=== PATIENT | male | born 1970 | race Caucasian/White ===

== ENCOUNTER 2017-03-06 15:31 | Emergency (ER) | payer MEDICARE ==
[~2017-03-06] VITALS: Ht 188 cm; Wt 90.0 kg
[~2017-03-06 15:31] MED LIST: ADLT ASA LOW81 MG PO; ASPIRIN325 MG PO; CARVEDILOL12.5 MG PO; CARVEDILOL6.25 MG PO; FUROSEMIDE40 MG PO; LASIX 20 MG TAB20 MG PO; LISINOPRIL20 MG PO; MAXZIDE-2537.5 MG/TA PO; PLAVIX75 MG PO; PROTONIX40 M2 PO; SIMVASTATIN40 MG PO; SPIRONOLACTONE25 MG PO
[2017-03-06 16:26] LABS: HEMATOCRIT 34.8 % (39.0-50.0); HEMOGLOBIN 11.5 g/dl (14.0-18.0); IMMATURE GRANULOCYTES 0.4 % (0.0-1.0); MEAN CELL VOLUME 87.4 fL CALC (80.0-100.0); MEAN CORPUSCULAR HGB 28.9 pG CALC (26.0-32.0); NEUT# 8.75 thou/uL (1.82-7.42); RED BLOOD COUNT 3.98 mill/uL (4.70-6.10); RED CELL DISTRI WIDTH 13.8 % (11.5-15.5)
[2017-03-06 16:46] LABS: BILIRUBIN, TOTAL 1.5 mg/dL (0.0-1.4); CREATININE 1.7 mg/dL (0.7-1.3); POTASSIUM 4.2 mmol/l (3.5-5.1); TOTAL PROTEIN 6.7 g/dL (6.3-8.2)
[2017-03-06 17:46] LABS: URINE BLOOD DIPSTICK SMALL (NEGATIVE); URINE COLOR YELLOW; URINE GLUCOSE - DIPSTICK NEGATIVE (NEGATIVE); URINE KETONE NEGATIVE (NEGATIVE); URINE LEUK ESTERASE NEGATIVE (NEGATIVE); URINE NITRITE - DIPSTICK NEGATIVE (Negative); URINE PROTEIN - DIPSTICK 100 mg/dL (NEG-TRACE); URINE SPECIFIC GRAVITY >=1.030
[2017-03-06 17:47] LABS: URINE AMORPH SEDIMENT MANY hpf (NONE-FER); URINE BILIRUBIN - DIPSTICK NEGATIVE (NEGATIVE); URINE CLARITY HAZY; URINE RBC 0-2 RBC/hpf (0-5); URINE WBC 0-2 WBC/hpf (0-5)
[2017-03-06] MEDS ORDERED: FLEXERIL5 MG PO (17:58)
[2017-03-06] MEDS ORDERED: VOLTAREN1%GEL TOP (17:58)
[2017-03-06 18:12] VITALS: BP 155/100
== END 2017-03-06 18:12 | disposition home or self-care (01) ==
LOC: ED 15:31
PROVIDERS: Family Medicine
DX: M54.9 Dorsalgia, unspecified (principal); I11.0 Hypertensive heart disease with heart failure; I50.9 Heart failure, unspecified; I25.10 Atherosclerotic heart disease of native coronary artery without angina pectoris; E78.5 Hyperlipidemia, unspecified

== ENCOUNTER 2017-03-08 08:17 | Inpatient (IN) | payer MEDICARE ==
[~2017-03-08] VITALS: Ht 188 cm; Wt 92.9 kg
[~2017-03-08 08:17] MED LIST changes: +FLEXERIL5 MG PO; +VOLTAREN1%GEL TOP
[2017-03-08 09:46] LABS: HEMATOCRIT 36.1 % (39.0-50.0); HEMOGLOBIN 11.7 g/dl (14.0-18.0); IMMATURE GRANULOCYTES 0.4 % (0.0-1.0); MEAN CELL VOLUME 88.5 fL CALC (80.0-100.0); MEAN CORPUSCULAR HGB 28.7 pG CALC (26.0-32.0); MEAN CORPUSCULAR HGB CONC 32.4 g/L CALC (32.0-36.0); NEUT# 10.98 thou/uL (1.82-7.42); RED BLOOD COUNT 4.08 mill/uL (4.70-6.10); RED CELL DISTRI WIDTH 14.5 % (11.5-15.5)
[2017-03-08 09:54] LABS: BARBITURATES NEGATIVE (NEGATIVE); COCAINE NEGATIVE (NEGATIVE); METHADONE NEGATIVE (NEGATIVE); OXCYCODONE NEGATIVE (NEGATIVE); TETRAHYDROCANNABIONOL NEGATIVE (NEGATIVE); TRICYLIC ANTIDEPRESSANTS NEGATIVE (NEGATIVE)
[2017-03-08 09:58] LABS: ALBUMIN 4.1 g/dL (3.2-5.0); BILIRUBIN, TOTAL 1.6 mg/dL (0.0-1.4); CALCIUM 9.1 mg/dL (8.4-10.2); CREATININE 1.8 mg/dL (0.7-1.3); POTASSIUM 4.5 mmol/l (3.5-5.1); TOTAL PROTEIN 7.2 g/dL (6.3-8.2)
[2017-03-08 10:06] LABS: URINE BILIRUBIN - DIPSTICK NEGATIVE (NEGATIVE); URINE BLOOD DIPSTICK SMALL (NEGATIVE); URINE CLARITY HAZY; URINE COLOR YELLOW; URINE GLUCOSE - DIPSTICK NEGATIVE (NEGATIVE); URINE KETONE NEGATIVE (NEGATIVE); URINE LEUK ESTERASE NEGATIVE (NEGATIVE); URINE NITRITE - DIPSTICK NEGATIVE (Negative); URINE PROTEIN - DIPSTICK 100 mg/dL (NEG-TRACE); URINE SPECIFIC GRAVITY >=1.030
[2017-03-08 10:14] LABS: URINE AMORPH SEDIMENT MANY hpf (NONE-FER); URINE RBC 0-2 RBC/hpf (0-5); URINE WBC 0-2 WBC/hpf (0-5)
[2017-03-08 12:39] VITALS: BP 121/88
[2017-03-08 16:20] VITALS: BP 140/102
[2017-03-08 19:00] VITALS: BP 135/100
[2017-03-08 20:46] VITALS: BP 134/96
[2017-03-09] VITALS: BP 115/87
== END 2017-03-09 02:35 | disposition short-term general hospital (02) | DRG 194 ==
LOC: ED 08:17 → ED-I 10:31 → ED 10:49 → MS2 10:50
PROVIDERS: Emergency Medicine; ADMIT Internal Medicine; ATTEND Internal Medicine
DX: J18.9 Pneumonia, unspecified organism (principal); I13.0 Hypertensive heart and chronic kidney disease with heart failure and stage 1 through stage 4 chronic kidney disease, or unspecified chronic kidney disease; I50.9 Heart failure, unspecified; R74.8 Abnormal levels of other serum enzymes; Z86.74 Personal history of sudden cardiac arrest; I25.10 Atherosclerotic heart disease of native coronary artery without angina pectoris; N18.3 Chronic kidney disease, stage 3 (moderate); E78.5 Hyperlipidemia, unspecified; Z95.5 Presence of coronary angioplasty implant and graft; Z87.891 Personal history of nicotine dependence; Z91.14 Patient's other noncompliance with medication regimen
CPT/HCPCS: J1650

== ENCOUNTER 2017-03-18 06:35 | Inpatient (IN) | payer MEDICARE ==
[~2017-03-18] VITALS: Ht 188 cm; Wt 99.9 kg
[2017-03-18 07:34] LABS: HEMATOCRIT 36.7 % (39.0-50.0); IMMATURE GRANULOCYTES 0.5 % (0.0-1.0); MEAN CELL VOLUME 87.4 fL CALC (80.0-100.0); MEAN CORPUSCULAR HGB 28.6 pG CALC (26.0-32.0); MEAN CORPUSCULAR HGB CONC 32.7 g/L CALC (32.0-36.0); NEUT# 7.56 thou/uL (1.82-7.42); RED BLOOD COUNT 4.2 mill/uL (4.70-6.10); RED CELL DISTRI WIDTH 16.8 % (11.5-15.5)
[2017-03-18 07:51] LABS: ALBUMIN 3.7 g/dL (3.2-5.0); ALKALINE PHOSPHATASE 94 u/l (38-126); BILIRUBIN, TOTAL 1.5 mg/dL (0.0-1.4); BUN 23 mg/dL (9-20); BUN/CREATININE RATIO 15 (12-20 (CALC)); CALCIUM 9.1 mg/dL (8.4-10.2); CARBON DIOXIDE 20 mmol/l (22-30); CHLORIDE 103 mmol/l (95-108); CREATININE 1.5 mg/dL (0.7-1.3); GFR 50 ML/MIN (>=60 (CALC)); GFR FOR AFR.AMER. > 60 ML/MIN (>=60 (CALC)); GLUCOSE 112 mg/dL (75-110); SGOT/AST 61 u/l (17-59); SGPT/ALT 374 u/l (21-72); SODIUM 137 mmol/l (137-146); TOTAL PROTEIN 6.8 g/dL (6.3-8.2)
[2017-03-18 08:00] LABS: ANION GAP 19 (6-22 (CALC)); POTASSIUM 5.1 mmol/l (3.5-5.1)
[2017-03-18] MEDS ORDERED: CARVEDILOL6.25 MG PO (19:30)
[2017-03-18] MEDS ORDERED: CLONIDINE0.1 MG PO (19:31)
[2017-03-18] MEDS ORDERED: Levaquin PO (19:32)
[2017-03-18] MEDS ORDERED: SPIRONOLACTONE25 MG PO (19:32)
[2017-03-18] MEDS ORDERED: LISINOPRIL20 MG PO (19:33)
[2017-03-18 21:45] VITALS: BP 154/98
[2017-03-18 22:00] VITALS: BP 155/109
[2017-03-18 22:15] VITALS: BP 153/113
[2017-03-18 22:30] VITALS: BP 142/104
[2017-03-18 22:45] VITALS: BP 143/104
[2017-03-18 23:00] VITALS: BP 161/106
[2017-03-19 00:01] VITALS: BP 124/87
[2017-03-19 01:00] VITALS: BP 131/89
[2017-03-19 02:00] VITALS: BP 129/86
== END 2017-03-19 03:20 | disposition short-term general hospital (02) | DRG 291 ==
LOC: ED 06:35 → ED-I 19:53 → ED 20:08 → ICU 20:09
PROVIDERS: Emergency Medicine; ADMIT Internal Medicine; ATTEND Internal Medicine
DX: I13.0 Hypertensive heart and chronic kidney disease with heart failure and stage 1 through stage 4 chronic kidney disease, or unspecified chronic kidney disease (principal); I50.23 Acute on chronic systolic (congestive) heart failure; Z86.74 Personal history of sudden cardiac arrest; N18.3 Chronic kidney disease, stage 3 (moderate); I25.5 Ischemic cardiomyopathy; I25.10 Atherosclerotic heart disease of native coronary artery without angina pectoris; E78.5 Hyperlipidemia, unspecified; F17.210 Nicotine dependence, cigarettes, uncomplicated; I25.2 Old myocardial infarction; K82.9 Disease of gallbladder, unspecified; Z91.19 Patient's noncompliance with other medical treatment and regimen; Z91.14 Patient's other noncompliance with medication regimen; Z86.73 Personal history of transient ischemic attack (TIA), and cerebral infarction without residual deficits; Z95.5 Presence of coronary angioplasty implant and graft
CPT/HCPCS: J1650

== ENCOUNTER 2017-03-27 13:59 | Emergency (ER) | payer MEDICARE ==
[~2017-03-27] VITALS: Ht 188 cm; Wt 90.0 kg
[~2017-03-27 13:59] MED LIST changes: +CLONIDINE0.1 MG PO; +Levaquin PO
[2017-03-27] MEDS ORDERED: ASPIRIN81 MG PO (15:37)
[2017-03-27] MEDS ORDERED: ATORVASTATIN CA10 MG PO (15:38)
[2017-03-27] MEDS ORDERED: GABAPENTIN100 MG PO (15:39)
[2017-03-27] MEDS ORDERED: PROTONIX40 M2 PO (15:41)
[2017-03-27] MEDS ORDERED: GNP NICOTI21 MG/24 H TOP (15:41)
[2017-03-27] MEDS ORDERED: SERTRALINE25 MG PO (15:42)
[2017-03-27] MEDS ORDERED: AMIODARONE200 MG PO (15:42)
[2017-03-27] MEDS ORDERED: CARVEDILOL6.25 MG PO (15:43)
[2017-03-27] MEDS ORDERED: LASIX 20 MG20 MG/TAB PO (15:43)
[2017-03-27] MEDS ORDERED: SPIRONOLACTONE25 MG PO (15:44)
[2017-03-27 16:22] VITALS: BP 133/71
== END 2017-03-27 16:22 | disposition home or self-care (01) ==
LOC: ED 13:59
DX: S43.402A Unspecified sprain of left shoulder joint, initial encounter (principal); Z95.810 Presence of automatic (implantable) cardiac defibrillator; X50.1XXA Overexertion from prolonged static or awkward postures, initial encounter; Y93.84 Activity, sleeping; Y92.003 Bedroom of unspecified non-institutional (private) residence as the place of occurrence of the external cause; R20.0 Anesthesia of skin; M79.602 Pain in left arm; I25.2 Old myocardial infarction; I10 Essential (primary) hypertension